=== PATIENT | male | born 1975 | race Caucasian/White ===

== ENCOUNTER 2018-12-29 16:00 | Outpatient (RCR) | payer BC ==
[~2018-12-29 16:00] MED LIST: GLUCOPHAGE1000 MG PO; HUMALOG100 UNIT/3 SQ; LANTUS 3ML100 UNITS/ SQ
== END 2019-01-03 ==
LOC: PT 16:00
PROVIDERS: ATTEND Podiatrist Foot & Ankle Surgery
DX: S93.402A Sprain of unspecified ligament of left ankle, initial encounter (principal); R60.9 Edema, unspecified; M25.572 Pain in left ankle and joints of left foot; M62.81 Muscle weakness (generalized); M25.672 Stiffness of left ankle, not elsewhere classified; R26.2 Difficulty in walking, not elsewhere classified; M25.472 Effusion, left ankle

== ENCOUNTER 2019-01-05 16:07 | Outpatient (RCR) | payer BC | END 2019-02-03 | LOC: PT 16:07 | PROVIDERS: ATTEND Podiatrist Foot & Ankle Surgery | DX: S93.402A Sprain of unspecified ligament of left ankle, initial encounter (principal); R60.9 Edema, unspecified; M62.81 Muscle weakness (generalized); R26.2 Difficulty in walking, not elsewhere classified; M25.572 Pain in left ankle and joints of left foot; M25.672 Stiffness of left ankle, not elsewhere classified; M25.472 Effusion, left ankle ==

== ENCOUNTER 2021-06-16 20:47 | Emergency (ER) | payer BC, OTHER ==
[~2021-06-16] VITALS: Ht 188 cm; Wt 120.2 kg
== END 2021-06-16 21:20 | disposition home or self-care (01) ==
LOC: ER 20:49
DX: M70.22 Olecranon bursitis, left elbow (principal); E11.9 Type 2 diabetes mellitus without complications
CPT/HCPCS: 99282